=== PATIENT | female | born 1970 | race Caucasian/White ===

== ENCOUNTER 2017-08-18 16:35 | Emergency (ER) | payer BC ==
[~2017-08-18] VITALS: Ht 172.7 cm; Wt 112.6 kg
[2017-08-18] MEDS ORDERED: TYLENOL WITH C1 EACH PO (18:31)
[2017-08-18 18:38] VITALS: BP 100/88
== END 2017-08-18 18:38 | disposition home or self-care (01) ==
LOC: EME 16:35
DX: S09.90XA Unspecified injury of head, initial encounter (principal); S20.229A Contusion of unspecified back wall of thorax, initial encounter; T14.8 Other injury of unspecified body region; W18.30XA Fall on same level, unspecified, initial encounter; Y92.008 Other place in unspecified non-institutional (private) residence as the place of occurrence of the external cause; K21.9 Gastro-esophageal reflux disease without esophagitis; J45.909 Unspecified asthma, uncomplicated; Z85.72 Personal history of non-Hodgkin lymphomas
CPT/HCPCS: 70450; 72125; 72131; 99281; 99284